=== PATIENT | female | born 1965 | race American Indian/Alaskan Native ===

== ENCOUNTER 2018-01-09 12:47 | Emergency (ER) | payer OTHER, BC ==
[2018-01-09 13:09] VITALS: BP 125/80
[2018-01-09] MEDS ORDERED: MOTRIN PO ONE (14:55)
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
== END 2018-01-09 17:39 | disposition home or self-care (01) ==
LOC: ED 12:47
DX: S16.1XXA Strain of muscle, fascia and tendon at neck level, initial encounter (principal); M25.552 Pain in left hip; I10 Essential (primary) hypertension; E11.9 Type 2 diabetes mellitus without complications; V43.52XA Car driver injured in collision with other type car in traffic accident, initial encounter; Y93.89 Activity, other specified; Y99.8 Other external cause status; Y92.410 Unspecified street and highway as the place of occurrence of the external cause
CPT/HCPCS: 72040; 72170; 99283

== ENCOUNTER 2018-04-04 14:26 | Outpatient (CLI) | payer BC ==
--- NOTE | 2018-04-04 15:32 | Mammography Report ---
BILATERAL MAMMOGRAM: FINDINGS: The breast tissue is heterogeneously dense, which could obscure detection of small masses (approximately 50%-75% glandular). No mass, distortion, suspicious calcification, or skin change is seen. There is no significant change when compared to her prior exam in April 2016. CAD was utilized. IMPRESSION: Negative mammogram. There is no mammographic evidence of malignancy. RECOMMENDATION: Follow-up per ACS guidelines. BI-RADS CATEGORY: 1 = Negative ACR BI-RADS MAMMOGRAPHIC CODES: 0 = Needs additional imaging evaluation; 1 = Negative; 2 = Benign; 3 = Probably benign; 4 = Suspicious; 5 = Malignant; 6 = Known biopsy-proven malignancy COMMENT: 1. Dense breast tissue, i.e., adenosis, fibrocystic changes, etc., may obscure an underlying neoplasm. 2. Approximately 10% of cancers are not detected with mammography. 3. A negative mammography report should not delay biopsy if a clinically suspicious mass is present. COMMENT: Patient follow-up letters are generated in [employer].
== END 2018-04-04 14:27 | disposition home or self-care (01) ==
LOC: SPVWC 14:26
PROVIDERS: ATTEND Family Medicine
DX: Z12.31 Encounter for screening mammogram for malignant neoplasm of breast (principal)
CPT/HCPCS: 77067

== ENCOUNTER 2018-08-27 07:30 | Day surgery (SDC) | payer BC ==
--- NOTE | 2018-08-25 11:59 | Anesthesia Consultation ---
Anesthesia Consult and Med Hx Date of service: 08/25/18 - Airway Anesthetic Teeth Evaluation: Poor ROM Head & Neck: Adequate Mental/Hyoid Distance: Adequate Mallampati Class: Class I Intubation Access Assessment: Good - Pulmonary Exam CTA: Yes - Cardiac Exam Cardiac Exam: RRR - Pre-Operative Health Status ASA Pre-Surgery Classification: ASA3 - Pulmonary Hx Smoking: Yes (Past hx) - Cardiovascular System Hx Hypertension: Yes (x 5yrs) - Central Nervous System Hx Psychiatric Problems: No - Other Systems Hx Cancer: No
[2018-08-25 12:06] LABS: Basophils % (Auto) 0.8 % (0.0-1.8); Eosinophils # (Auto) 0.2 K/mm3 (0.0-0.4); Eosinophils % (Auto) 3.7 % (0.0-4.3); Hematocrit 35.3 % (30.3-42.9); Lymphocytes # (Auto) 2.7 K/mm3 (1.2-5.4); Lymphocytes % (Auto) 50.6 % (13.4-35.0); Mean Corpuscular HGB Conc 34 % (30-34); Mean Corpuscular Hemoglobin 30 pg (28-32); Mean Corpuscular Volume 88 fl (79-97); Monocytes # (Auto) 0.3 K/mm3 (0.0-0.8); Monocytes % (Auto) 6.3 % (0.0-7.3); Platelet Count 264 K/mm3 (140-440); Red Blood Count 4.02 M/mm3 (3.65-5.03); Red Cell Distribution Width 14.4 % (13.2-15.2)
[2018-08-25 12:19] LABS: BUN/Creatinine Ratio 27; Blood Urea Nitrogen 19 mg/dL (7-17); Calcium 9.6 mg/dL (8.4-10.2); Hemolysis Index 10
--- NOTE | 2018-08-25 15:18 | History and Physical Report ---
History of Present Illness Date of examination: 08/25/18 Chief complaint: Postmenopausal Bleeding, Endometrial Polyp History of present illness: Pt is a 52 year old -[place] female presents for further evaluation of postmenopausal bleeding and findings of an endometrial polyp on in -office biopsy on 06/17/18. Past History Past Medical History: hypertension, diabetes, high cholesterol, other ( bronchitits) Past Surgical History: section, other (knee arthroscopy ) Family/Genetic History: diabetes, heart disease, hypertension, stroke Social history: no significant social history Medications and Allergies Allergies Allergy/AdvReac Type Severity Reaction Status Date / Time No Known Allergies Allergy Unverified 08/22/18 14:31 Home Medications Medication Instructions Recorded Confirmed Last Taken Type Cyclobenzaprine [Flexeril] 10 mg PO TID PRN #15 tablet 01/09/18 Unknown Rx Ibuprofen [Motrin] 600 mg PO Q8H PRN #12 tablet 01/09/18 Unknown Rx Active Meds: Active Medications Lactated Ringer's (Lactated Ringers) 1,000 mls @ 100 mls/hr IV DIRECT MOISE Midazolam HCl (Versed) 2 mg IV PREOP NR Stop: 08/27/18 23:59 Review of Systems All systems: negative - Physical Exam Breasts: Positive: deferred Cardiovascular: Regular rate Lungs: Positive: Clear to auscultation Abdomen: Positive: soft (obese ) Results Result Diagrams: 08/25/18 11:50 08/25/18 11:50 Abnormal lab results 08/25/18 08/25/18 Range/Units 11:50 11:50 Lymph % (Auto) 50.6 H (13.4-35.0) % Seg Neutrophils % 38.6 L (40.0-70.0) % Potassium 3.5 L (3.6-5.0) mmol/L BUN 19 H (7-17) mg/dL Glucose 303 H (65-100) mg/dL All other labs normal. Assessment and Plan A: Postmenopausal Bleeding Suspected Endometrial Polyp Obesity Diabetes Hypertension P: Proceed with Hysteroscopy, Myosure endometrial sampling and other indicated procedures.
[~2018-08-27 07:30] MED LIST: LACTATED RINGERS 1,000 ML IV SCH; VERSED IV NR; XYLOCAINE 1% MPF 5 mL ONE
[2018-08-27] MEDS ORDERED: ANCEF/STERILE WATER 2 GM/20 ML 2 GM/20 ML SYRINGE IV NR (08:00)
[2018-08-27] MEDS ORDERED: PROVENTIL IH NR (09:30)
[2018-08-27] MEDS ORDERED: DILAUDID IV PRN ×2 (09:36→12:41)
[2018-08-27] MEDS ORDERED: ZOFRAN IV PRN ×2 (09:36→12:41)
--- NOTE | 2018-08-27 09:36 | Anesthesia Day of Surgery ---
Anesthesia Day of Surgery - Day of Surgery Patient Examined: Yes Patient H&P Reviewed: Yes Patient is NPO: Yes
[2018-08-27] MEDS ORDERED: DIPRIVAN 10 MG/ML IV ONE (09:58)
[2018-08-27] MEDS ORDERED: XYLOCAINE MPF 2% ONE (09:58)
[2018-08-27] MEDS ORDERED: DILAUDID ONE (09:59)
[2018-08-27] MEDS ORDERED: DECADRON ONE (10:00)
[2018-08-27] MEDS ORDERED: ZOFRAN ONE (10:00)
[2018-08-27] MEDS ORDERED: NACL 0.9% IR ONE ×2 (10:13)
[2018-08-27] MEDS ORDERED: TORADOL ONE (10:39)
--- NOTE | 2018-08-27 10:56 | Operative Report ---
Operative Report Operative Report: Date of Procedure: August 27, 2018 Preoperative Diagnosis: 1) Postmenopausal Bleeding 2) Suspected Endometrial Polyp Postoperative Diagnosis: 1) Postmenopausal Bleeding Procedure: 1) Hysteroscopy 2) Myosure endometrial sampling Surgeon: Marion Lopez MD Findings: 1) Small anteverted uterus that sounded to 8 cm 2) Atrophic endometrium 3) No evidence of endometrial polyp Anesthesia: EBL: Minimal IVF: 500 mL Deficit: 200 mL Urine output: 100 mL, clear prior to the procedure Specimen: Endometrial curettings to pathology Complications: None. Counts correct x 2 Disposition: Stable to PACU Indication for Procedure: The pt is a 52 year old -[place] female who presents for further evaluation of postmenopausal bleeding and findings of an endometrial polyp on in-office biopsy on 06/17/18. Operation In Detail: After the risks, complications, alternatives and benefits were signed to the patient she gave informed consent for the procedure. She was subsequently taken to the operating room with her IV noted to be running well and placed in the dorsal supine position. SCDs were noted to be in place and functioning. General anesthesia was then induced without difficulty. The patient was then placed in the dorsal lithotomy position and prepped and draped in normal sterile fashion. A timeout was performed. An exam under anesthesia revealed a small mobile uterus. The bladder was then drained with a catheter yielding 100 mL of clear urine. An open sided bivalve speculum was placed into the vagina for adequate visualization of the cervix. A single-tooth tenaculum was placed on the anterior lip of the cervix for traction. The uterus was then gently sounded to 8 cm. The cervix was then serially dilated with Quintana dilators to a #21. The hysteroscope was then introduced into the uterine cavity with findings of a primarily atrophic endometrium and no evidence of an endometrial polyp. At this time the Myosure Lite device was introduced into the uterine cavity and endometrial sampling was performed. Subsequently all instruments were removed from the uterus atraumatically. The single-tooth tenaculum was removed from the cervix. Puncture sites were noted to be hemostatic. All instruments removed from the vagina atraumatically and the procedure was ended. The patient was replaced into the dorsal supine position and extubated without difficulty. She tolerated the procedure well, and was subsequently taken to the PACU in stable condition. All instrument and lap counts were correct 2.
--- NOTE | 2018-08-27 11:00 | Short Stay Summary ---
Short Stay Documentation Date of service: 08/27/18 - History Social history: no significant social history - Allergies and Medications Current Medications: Allergies No Known Allergies Allergy (Unverified 08/22/18 14:31) Home Medications Medication Instructions Recorded Confirmed Last Taken Type AtorvaSTATin [Lipitor] 40 mg PO QHS 08/25/18 08/25/18 Unknown History Losartan Potassium 50 mg PO DAILY 08/25/18 08/25/18 Unknown History Saxagliptin HCl/Metformin HCl 1 tab PO DAILY 08/25/18 08/25/18 Unknown History [Kombiglyze XR 2.5-1,000 mg] hydroCHLOROthiazide [HCTZ] 25 mg PO DAILY 08/25/18 08/25/18 Unknown History Active Medications Albuterol (Proventil) 2.5 mg IH PREOP NR Stop: 08/27/18 12:00 Last Admin: 08/27/18 09:33 Dose: 2.5 mg Hydromorphone HCl (Dilaudid) 0.5 mg IV Q10MIN PRN PRN Reason: Pain , Severe (7-10) Stop: 08/27/18 20:00 Lactated Ringer's (Lactated Ringers) 1,000 mls @ 100 mls/hr IV DIRECT MOISE Last Admin: 08/27/18 09:20 Dose: 100 mls/hr Cefazolin Sodium (Ancef/Sterile Water 2 Gm/20 Ml) 2 gm in 20 mls @ 80 mls/hr IV PREOP NR; Protocol Stop: 08/27/18 23:59 Midazolam HCl (Versed) 2 mg IV PREOP NR Stop: 08/27/18 23:59 Last Admin: 08/27/18 09:34 Dose: 2 mg Ondansetron HCl (Zofran) 4 mg IV ONCE PRN PRN Reason: Nausea And Vomiting Stop: 08/27/18 13:00 - Physical exam Breasts: deferred - Brief post op/procedure progress note Date of procedure: 08/27/18 Pre-op diagnosis: Postmenopausal Bleeding, Endometrial Polyp Post-op diagnosis: same Procedure: 1) Hysteroscop 2) Myosure Endometrial Sampling Anesthesia: GETA (with LMA ) Findings: 1) Small anteverted uterus that sounded to 8 cm 2) Atrophic endometrium 3) No evidence of endometrial polyp Surgeon: SLIM LOPEZ Estimated blood loss: minimal Pathology: list (endometrial curettings to pathology) Specimen disposition: to lab Condition: stable - Hospital course Hospital course: Pt tolerated hysteroscopy and Mysosure endometrial sampling well. She was observed in the PACU until she met discharge criteria. She will follow up in the office in [address] Lopez. - Disposition Condition at discharge: Stable Disposition: TO HOME OR SELFCARE - Discharge Diagnoses (1) Postmenopausal bleeding Status: Acute (2) Endometrial polyp Status: Acute (3) Diabetes Status: Acute Qualifiers: Diabetes mellitus type: type 2 Diabetes mellitus care home insulin use: unspecified manager long term care insulin use status Diabetes mellitus complication status : with unspecified complications Qualified Code(s): E11.8 - Type 2 diabetes mellitus with unspecified complications (4) Obesity Status: Acute Qualifiers: Obesity classification: adult class 2 (BMI 35 - 39.9) Serious obesity comorbidity presence: unspecified whether serious comorbidity present Body mass index: BMI 39.0-39.9 (5) Hypertension Status: Acute Qualifiers: Hypertension type: unspecified Qualified Code(s): I10 - Essential (primary ) hypertension Short Stay Discharge Plan Activity: other (Nothing in vagina, no tub baths x 4 weeks ) Weight Bearing Status: Full Weight Bearing Diet: regular Follow up with: LARA HEATH MD [Primary Care Provider] - 7 Days SLIM LOPEZ MD [Staff Physician] - 09/10/18 (Please call to schedule postoperative appt ) Prescriptions: Ibuprofen [Motrin] 800 mg PO Q8HR PRN #30 tablet PRN Reason: Pain, Moderate (4-6) oxyCODONE /ACETAMINOPHEN [Percocet 5/325] 1 tab PO Q6HR PRN #30 tablet PRN Reason: Pain , Severe (7-10)
[2018-08-27] MEDS ORDERED: PERCOCET 5/325 PO PRN (11:39)
[2018-08-27] MEDS ORDERED: PERCOCET 5/325 ONE (11:45)
[2018-08-27 12:09] VITALS: BP 110/75
--- NOTE | 2018-08-27 12:40 | Post Anesthesia Evaluation ---
- Post Anesthesia Evaluation Patient Participated: Yes Airway Patent: Yes Stable Respiratory Function: Yes Nausea/Vomiting: No Temp > 96.8F: Yes Pain Manageable: Yes Adequeate Hydration: Yes Anesthesia Complications: No
== END 2018-08-27 11:25 | disposition home or self-care (01) ==
LOC: OR 07:30
PROVIDERS: ATTEND Obstetrics & Gynecology
DX: N95.0 Postmenopausal bleeding (principal); N85.4 Malposition of uterus; E11.9 Type 2 diabetes mellitus without complications; I10 Essential (primary) hypertension; E78.00 Pure hypercholesterolemia, unspecified; M19.90 Unspecified osteoarthritis, unspecified site; G43.909 Migraine, unspecified, not intractable, without status migrainosus; E66.9 Obesity, unspecified; Z68.39 Body mass index [BMI] 39.0-39.9, adult; Z79.899 Other long term (current) drug therapy; Z79.84 Long term (current) use of oral hypoglycemic drugs; Z87.891 Personal history of nicotine dependence; Z98.890 Other specified postprocedural states; Z83.3 Family history of diabetes mellitus; Z82.49 Family history of ischemic heart disease and other diseases of the circulatory system
CPT/HCPCS: 36415; 58558; 80048; 81025; 82962; 85025; 88305; A4217; C1782; J0690; J1100; J1170; J1885; J2250; J2405; J2704; J7120

== ENCOUNTER 2021-09-19 16:15 | Outpatient (CLI) | payer BC ==
--- NOTE | 2021-09-20 14:52 | Mammography Report ---
DIGITAL SCREENING MAMMOGRAM WITH CAD, 09/20/2021 CLINICAL INFORMATION / INDICATION: Routine screening mammography. SCREENING MAMMO Z12.31 TECHNIQUE: Digital bilateral 2D mammography was obtained in the craniocaudal and mediolateral obliqu e projections. This examination was interpreted with the benefit of Computer-Aided Detection analysis . COMPARISON: 09/16/2014 through 04/04/2018. FINDINGS: Breast Density: The breasts are heterogeneously dense, which may obscure small masses. No dominant mass, suspicious calcifications, or architectural distortion in either breast. Benign-appearing nodular density in the right upper outer quadrant is stable. IMPRESSION: No mammographic evidence of malignancy. Follow up recommendation: Routine yearly BI-RADS Category 2: Benign. A "normal" or negative report should not discourage follow up or biopsy of a clinically significant f inding. A written summary of these findings will be mailed to the patient. The patient will be entered into a mammography reporting system which will generate a reminder letter for the patient's next appointmen t at the appropriate interval. The [employer] recommends yearly mammograms starting at age 40 and continuing as l rhina as a woman is in good health. Breast MRI is recommended for women with an approximate 20-25% or greater lifetime risk of breast cancer, including women with a strong family history of breast or ova kaycee cancer or who have been treated for Hodgkin's disease. Signer Name: Oscar Yoder MD Signed: 09/20/2021 2:48 PM Workstation Name: [id number]
== END 2021-09-19 16:16 | disposition home or self-care (01) ==
LOC: SPVWC 16:15
PROVIDERS: ATTEND Physician Assistant
DX: Z12.31 Encounter for screening mammogram for malignant neoplasm of breast (principal); N63.11 Unspecified lump in the right breast, upper outer quadrant
CPT/HCPCS: 77067